=== PATIENT | female | born 1970 | race African-American/Black ===

== ENCOUNTER 2016-12-23 20:15 | Emergency (ER) | payer BC, MEDICARE ==
--- NOTE | ~2016-12-23 | CR72 ---
[facility] A Service of [facility] & [facility] RADIOLOGY TEXT RESULTS PATIENT: ANDRES ROWELL LOCATION: [facility] : 74 UNIT #: [id number] AGE: [address]: Kathleen Kemp MD SEX: F ORDER DR: [id number] [facility] [address] [place], [place] [address] [id number] MR#: [id number] Acc #: [id number] NAME: ANDRES ROWELL : 1970 SEX: F STUDY DATE/TIME: 12/23/2016 21:27 UNIT: [facility] ROOM: STUDY DESCRIPTION: CR Chest Single View Portable Attending Physician: Kathleen Kemp M.D. Ordering Physician: Kathleen Kemp M.D. Primary Care Physician: Renetta Ross M.D. MEDICAL IMAGING REPORT This report is preliminary unless electronic signature is present EXAM Single view chest INDICATIONS Cough and shortness of air. FINDINGS Single portable AP view of the chest compared to 07/18/2014. Heart and mediastinal contours normal. Lungs are clear. No pleural effusion. IMPRESSION Negative chest radiograph Dictated by... Yasir Sethi M.D. THIS IS AN ELECTRONICALLY VERIFIED REPORT Yasir Sethi M.D. at 12/23/2016 11:15 PM RPC/more TD: 12/23/2016 22:40 JOB #: [id number] MEDICAL IMAGING REPORT Page 1 of 1 COPY
--- NOTE | ~2016-12-23 | EKG ---
PATIENT: ANDRES ROWELL UNIT #: [id number] Ventricular Rate: 94 BPM Atrial Rate: 94 BPM P-R Interval: 158 ms QRS Duration: 74 ms Q-T Interval: 344 ms QTC Calculation(Bezet): 430 ms P [place]: 63 degrees Calculated R [place]ster: 29 degrees Calculated T Brewster: 30 degrees Diagnosis Line: Normal sinus rhythm Diagnosis Line: Possible Left atrial enlargement Diagnosis Line: Nonspecific T wave abnormality Diagnosis Line: Abnormal ECG Diagnosis Line: No previous ECGs available Diagnosis Line: Confirmed by DUONG SIMON MD ([id number]) on Diagnosis Line: 12/24/2016 3:46:17 PM INTERPRETING MD: AURORA SCHAFFER
[2016-12-23 23:11] LABS: BASOPHIL# 0.1 X10e3 (0-0.3); BASOPHIL% 1.1 % (0-2.5); EOSINOPHIL# 0.3 X10e3 (0-0.7); EOSINOPHIL% 3.2 % (0.0-7.0); HEMATOCRIT 42.9 % (35.0-45.0); HEMOGLOBIN 13.8 gm/dL (12.0-16.0); LYMPHOCYTE# 1.9 X10e3 (1.0-3.5); LYMPHOCYTE% 24.2 % (17.0-45.0); MEAN CELL VOLUME 79.5 FL (83-96); MEAN CORPUSCULAR HEMOGLOBIN 25.5 PG (28-34); MEAN CORPUSCULAR HGB CONC 32.1 g/dL (30-36); MEAN PLATELET VOLUME 9.4 FL (6.5-11.5); MONOCYTE# 0.7 X10e3 (0-1.0); MONOCYTE% 8.4 % (3.0-12.0); NEUTROPHIL% 63.1 % (40-75); PLATELET COUNT 246 X10e3 (140-420); RED BLOOD COUNT 5.39 X10e (3.90-5.30)
[2016-12-23 23:12] LABS: DIFF IND NO
[2016-12-23 23:30] LABS: BUN/CREATININE RATIO 17.14; CALCIUM SERUM 10.5 mg/dL (8.4-10.2); CREATININE SERUM 0.7 mg/dL (0.6-1.4); GLOM FILT RATE Estimated 122.1 mL/min (>60); POTASSIUM 4.3 mmol/L (3.5-5.1)
== END 2016-12-24 00:39 | disposition home or self-care (01) ==
LOC: CED 20:15
PROVIDERS: Emergency Medicine
DX: R42 Dizziness and giddiness (principal); Z90.710 Acquired absence of both cervix and uterus
CPT/HCPCS: 71010; 80048; 85025; 93005; 99283

== ENCOUNTER 2017-04-12 09:51 | Observation (INO) | payer BC, MEDICARE ==
[~2017-04-12] VITALS: Ht 160 cm; Wt 99.0 kg
--- NOTE | ~2017-04-12 | ST ---
Unit #: [id number] #: [id number] Patient: ANDRES ROWELL [id number] [facility]. [place] [address] [place], [place] [address] [id number] I MR#: [id number] NAME: ANDRES ROWELL : 1970 SEX: F STUDY DATE/TIME: 04/13/2017 UNIT: [facility] ROOM: 565 STUDY DESCRIPTION: Attending Physician: Chloé Carroll M.D. Primary Care Physician: Renetta Ross M.D. CARDIOLOGY REPORT EXAM Exercise Cardiolite stress test. FINDINGS Baseline EKG: Normal sinus rhythm with ventricular rate 87 beats per minute, left ventricular hypertrophy, mild left atrial abnormality, low voltage in aVL. PROCEDURE The patient walked on the treadmill for 6 minutes utilizing Aries protocol, achieving a workload of 7.1 METs. Next, 85% of maximum target heart rate achieved at 150 beats per minute with a maximum blood pressure response of 185/120 mmHg. EKG during the test was equivocal to baseline. No acute ischemic changes. The patient had no complaints of chest pain, palpitations, or dizziness. Had increased shortness of breath and fatigueness which resolved in recovery phase. IMPRESSION 1. Functional class III with a workload of 7.1 METs. 2. Patient walked for 6 minutes, achieving 85% of maximum target heart rate at 150 beats per minute with a hypertensive blood pressure response of 185/120 mmHg. 3. Patient had no complaints of chest pain, palpitations, or dizziness. Had increased shortness of breath and fatigueness which resolved in recovery phase. 4. Blood pressure decreased down to 160/100 mmHg at the end of the recovery phase. The patient will get additional blood pressure medication when she returns to the floor. 5. Cardiolite was injected at peak heart rate. Radionuclide tests pending. Please correlate with nuclear images. Dictated by... Henny WolfPGladysRGladysN. for Nicole Fall/emilia TD: 04/13/2017 11:03 JOB #: [id number] Unit #: [id number] #: [id number] Patient: ANDRES ROWELL CARDIOLOGY REPORT Page 1 of 1 X Leila Bernal APRN CARDIOLOGY REPORT
--- NOTE | ~2017-04-12 | HP ---
Unit #: [id number] #: [id number] Patient: ANDRES ROWELL [id number] [address] [id number] I MR#: [id number] NAME: ANDRES ROWELL ROOM: 23230 Age: 47 Sex: F Admission Date: 04/12/2017 : 1970 Attending Physician: Chloé Carroll M.D. Primary Care Physician: Renetta Ross M.D. HISTORY AND PHYSICAL REASON FOR ADMISSION Chest pain. HISTORY OF PRESENT ILLNESS The patient is a 47-year-old -[place] female with no prior history of coronary disease or cardiac testing in the past. She takes no medications at home. She is a nonsmoker. She does have family history of a grandmother that of an PR at the age of 65. Patient, over the last several weeks, has noted an increase in her blood pressure at home, has had an on and off again headache. Today, she was at work. 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 Somebody took her blood pressure at work and it was 180/120. She had no exertional signs and symptoms, no shortness of breath, diaphoresis, nausea, vomiting or loss of consciousness. Patient performs daily activities without any difficulty or symptoms of pain. PAST MEDICAL HISTORY Significant for hysterectomy. SOCIAL HISTORY Patient is a nonsmoker. No alcohol or drug abuse. FAMILY HISTORY Significant for mother of cirrhosis at the age of 44. Grandmother of an PR at the age of 65. Father at a young age of a motor vehicle accident. DIAGNOSTICS CARDIOVASCULAR: EKG shows sinus rhythm with no ST changes. LABORATORY: Sodium 137, potassium 4.3, chloride 103, CO2 28, BUN 12, creatinine 0.7, glucose 131. Cardiac enzymes and CBC are pending. IMAGING: Chest x-ray is also pending. REVIEW OF SYSTEMS Complains of pressure/tightness in the chest. No fever, chills, cough, nausea, vomiting, diarrhea, dizziness, lightheadedness, headache, changes in visual field, numbness, tingling. All other review of systems is negative. Unit #: [id number] #: [id number] Patient: ANDRES ROWELL ALLERGIES No known drug allergies. HOME MEDICATIONS None. PHYSICAL EXAM GENERAL: The patient is awake, alert, in no apparent distress. Color is pink. Skin is warm and dry. VITAL SIGNS: Afebrile. Heart rate 97, blood pressure 124/88. HEENT: Normal carotid upstrokes. No auscultated bruit. Negative JVD lying supine. Negative hepatojugular reflux. CHEST: Respirations are regular, unlabored at rest. Bilateral breath sounds have good air entry through all lung wilson. No crackles, rubs or wheezes are heard. HEART: S1, S2. Regular rate and rhythm. No murmurs, rubs or gallops. ABDOMEN: Soft, nontender, nondistended. Positive bowel sounds x4 quadrants. No ascites noted. EXTREMITIES: Bilateral lower extremities have no pretibial or pitting edema. DP/PT pulses are 2+. Cap refill less than 3 seconds. NEURO: No focal motor or sensory deficits. Moves all extremities without difficulty. IMPRESSION 1. Atypical chest pain. 2. New onset hypertension. 3. Family history of CAD of the grandmother that of a young age at the age of 65. PLAN The patient will be admitted for 23 hour observation. Will rule out for PR. Will start on lisinopril 5 mg daily for hypertension as well as baby aspirin. Will check a 2D echo with Doppler to assess for hypertensive heart disease and if cardiac enzymes negative, will plan on stress test tomorrow morning. Dictated by JENNIFER Diana M.D. LR/df TD: 04/12/2017 11:45 JOB #: [id number] HISTORY AND PHYSICAL Page 1 of 1 X X HISTORY AND PHYSICAL
--- NOTE | ~2017-04-12 | EKG ---
PATIENT: ANDRES ROWELL UNIT #: [id number] Ventricular Rate: 100 BPM Atrial Rate: 100 BPM P-R Interval: 140 ms QRS Duration: 72 ms Q-T Interval: 334 ms QTC Calculation(Bezet): 430 ms P Dows: 48 degrees Calculated R Dows: 17 degrees Calculated T Dows: 20 degrees Diagnosis Line: Normal sinus rhythm Diagnosis Line: Normal ECG Diagnosis Line: When compared with ECG of 23-DEC-2016 21:39, Diagnosis Line: No significant change was found Diagnosis Line: Confirmed by MAYURI SAUNDERS MD ([id number]) on Diagnosis Line: 04/13/2017 10:52:14 AM INTERPRETING MD: CHIP SCHAFFER
--- NOTE | ~2017-04-12 | EKG ---
PATIENT: ANDRES ROWELL UNIT #: [id number] Ventricular Rate: 88 BPM Atrial Rate: 88 BPM P-R Interval: 150 ms QRS Duration: 82 ms Q-T Interval: 348 ms QTC Calculation(Bezet): 421 ms P [place]: 52 degrees Calculated R [place]: 48 degrees Calculated T [place]: -8 degrees Diagnosis Line: Normal sinus rhythm with sinus arrhythmia Diagnosis Line: Cannot rule out Inferior infarct , age Diagnosis Line: undetermined Diagnosis Line: Borderline ECG Diagnosis Line: When compared with ECG of 12-APR-2017 09:56, Diagnosis Line: (unconfirmed) Diagnosis Line: Minimal criteria for Inferior infarct are now Diagnosis Line: Present Diagnosis Line: Confirmed by ISRRAEL SCHAFFER, DERIK ([id number]) on 04/18/2017 Diagnosis Line: 7:33:13 AM INTERPRETING MD: ISRRAEL SCHAFFER
--- NOTE | ~2017-04-12 | TH ---
Unit #: [id number] #: [id number] Patient: ANDRES ROWELL [id number] [address] [address] [id number] I MR#: [id number] NAME: ANDRES ROWELL : 1970 SEX: F STUDY DATE/TIME: 04/13/2017 UNIT: [facility] ROOM: 565 STUDY DESCRIPTION: Attending Physician: Chloé Carroll M.D. Primary Care Physician: Renetta Ross M.D. CARDIOLOGY REPORT EXAM Exercise Cardiolite stress test, nuclear portion PROCEDURES Using Tc 99M labeled Cardiolite rest and stress SPECT images were obtained. Multiple SPECT images were obtained in various views including horizontal and vertical long axis and short axis views of the left ventricle. Images were obtained by gated SPECT method. The patient was administered 12.0 mCi of Cardiolite at rest. The patient was administered 32.6 mCi of Cardiolite at peak exercise. Total exercise time is 6 minutes. On the stress images, there is normal perfusion noted. The rest images show normal perfusion. Comparing rest and stress images, there is no stress-induced ischemia noted. The left ventricular ejection fraction is calculated to be 62%. There is no focal wall motion abnormality seen. CONCLUSION 1. No stress-induced ischemia noted. 2. The left ventricular ejection fraction is calculated to be 62%. 3. There is no focal wall motion abnormality seen. 4. Normal exercise Cardiolite stress test. Dictated by... Nicole Fall TD: 04/14/2017 08:20 JOB #: [id number] CARDIOLOGY REPORT Page 1 of 1 X Chloé Carroll MD <ELECTRONICALLY SIGNED> 04/26/17 1524 CARDIOLOGY REPORT
--- NOTE | ~2017-04-12 | CR72 ---
[facility] A Service of [facility] & [facility] RADIOLOGY TEXT RESULTS PATIENT: ANDRES ROWELL LOCATION: [facility] 565-01 : [birth year] UNIT #: [id number] AGE: [address]: Chloé Carroll MD SEX: F ORDER DR: [id number] [facility] [address] [place], [place] [address] [id number] I MR#: [id number] Acc #: [id number] NAME: ANDRES ROWELL : 1970 SEX: F STUDY DATE/TIME: 04/12/2017 10:16 UNIT: [facility] ROOM: [address] STUDY DESCRIPTION: CR Chest Single View Portable Attending Physician: Chloé Carroll M.D. Ordering Physician: Stef Finney M.D. Primary Care Physician: Renetta Ross M.D. MEDICAL IMAGING REPORT This report is preliminary unless electronic signature is present EXAM Portable chest HISTORY Chest pain, shortness of air x1 day COMPARISON 12/23/2016 FINDINGS Portable view chest demonstrates low lung volumes. No infiltrates or effusions. Heart, mediastinum great vessels bony thorax appear normal. No pneumothorax. Overall, no acute findings Dictated by... Julian Crawley M.D. THIS IS AN ELECTRONICALLY VERIFIED REPORT Julian Crawley M.D. at 04/13/2017 7:59 AM Shelli TD: 04/12/2017 13:42 JOB #: [id number] MEDICAL IMAGING REPORT Page 1 of 1 COPY
[2017-04-12 10:41] LABS: BASOPHIL# 0.1 X10e3 (0-0.3); EOSINOPHIL# 0.2 X10e3 (0-0.7); EOSINOPHIL% 2.6 % (0.0-7.0); HEMATOCRIT 40.7 % (35.0-45.0); HEMOGLOBIN 13.2 gm/dL (12.0-16.0); LYMPHOCYTE# 1.7 X10e3 (1.0-3.5); LYMPHOCYTE% 23.1 % (17.0-45.0); MEAN CELL VOLUME 79.4 FL (83-96); MEAN CORPUSCULAR HEMOGLOBIN 25.7 PG (28-34); MEAN CORPUSCULAR HGB CONC 32.4 g/dL (30-36); MEAN PLATELET VOLUME 8.5 FL (6.5-11.5); MONOCYTE# 0.6 X10e3 (0-1.0); MONOCYTE% 8.7 % (3.0-12.0); NEUTROPHIL# 4.8 X10e3 (1.5-7.1); NEUTROPHIL% 64.6 % (40-75); PLATELET COUNT 248 X10e3 (140-420); RED BLOOD COUNT 5.12 X10e (3.90-5.30); RED CELL DISTRIBUTION WIDTH 14.6 % (11.0-15.5); WHITE BLOOD COUNT 7.4 X10e3 (4.0-10.5)
[2017-04-12 10:44] LABS: DIFF IND NO
[2017-04-12 10:51] LABS: POC - CKMB 1.5 ng/mL (0.0-7.9); POC - TROPONIN <0.05 ng/mL (<=0.05)
[2017-04-12 10:52] LABS: PARTIAL THROMBOPLASTIN TIME 25.9 SECONDS (23.5-31.3); PROTHROMBIN TIME (PATIENT) 10.7 SECONDS (10.0-11.7)
[2017-04-12 11:04] LABS: ALBUMIN SERUM 3.6 g/dL (3.5-5.0); BILIRUBIN, DIRECT 0.1 mg/dL (0.0-0.2); BILIRUBIN,INDIRECT 0.4 mg/dL (0.0-0.9); BILIRUBIN,TOTAL 0.5 mg/dL (0.2-2.0); BUN/CREATININE RATIO 27.5; CALCIUM SERUM 9.5 mg/dL (8.4-10.2); CREATININE SERUM 0.4 mg/dL (0.6-1.4); GLOM FILT RATE Estimated 145.8 mL/min (>60); POTASSIUM 3.7 mmol/L (3.5-5.1); PROTEIN TOTAL SERUM 7.2 g/dL (6.0-8.3)
[2017-04-12 13:02] LABS: POC - CKMB 1.9 ng/mL (0.0-7.9); POC - TROPONIN <0.05 ng/mL (<=0.05)
[2017-04-12 17:18] LABS: %MB 3.3 % (0.0-4.0); MB 2.7 ng/ml
[2017-04-12 23:17] LABS: %MB 3.1 % (0.0-4.0); MB 2.4 ng/ml
[2017-04-13 07:27] LABS: CK TOTAL 59 IU/L (26-140)
[2017-04-13 07:41] LABS: BUN/CREATININE RATIO 16.66; CALCIUM SERUM 9.9 mg/dL (8.4-10.2); CREATININE SERUM 0.6 mg/dL (0.6-1.4); GLOM FILT RATE Estimated 127.6 mL/min (>60); MAGNESIUM 1.8 mg/dL (1.6-3.0); POTASSIUM 4.5 mmol/L (3.5-5.1)
[2017-04-13 11:03] LABS: CHOLESTEROL 144 mg/dL (0-200); HDL CHOLESTEROL 38 mg/dL (35-95); LDL CHOLESTEROL 69 mg/dL (-130); LDL/HDL RATIO 2 RATIO (0-4); TRIGLYCERIDES 186 mg/dL (10-160)
[2017-04-13] MEDS ORDERED: ZESTRIL5 MG PO (14:57)
== END 2017-04-13 15:24 | disposition home or self-care (01) | DRG 313 ==
LOC: CED 09:51 → C5C 10:36 → CEDOF 10:36 → C5C 10:36 → CED 10:44 → CEDOF 10:44 → C5C 13:48 → CEDOF 13:48 → C5C 13:48
PROVIDERS: Emergency Medicine; Internal Medicine Cardiovascular Disease
DX: R07.89 Other chest pain (principal); I10 Essential (primary) hypertension; Z90.710 Acquired absence of both cervix and uterus; Z82.49 Family history of ischemic heart disease and other diseases of the circulatory system
CPT/HCPCS: 36415; 71010; 78452; 80048; 80061; 80076; 82550; 82553; 83735; 84443; 84484; 85025; 85610; 85730; 93005; 93017; 93306; 96374; 99285; A9500; G0378; J2405